=== PATIENT | male | born 1970 | race Caucasian/White ===

== ENCOUNTER 2020-02-11 21:08 | Emergency (ER) | payer SELFPAY ==
[~2020-02-11] VITALS: Ht 185.4 cm; Wt 158.7 kg
[2020-02-11 21:23] LABS: EOS # 0.3 (0.04-0.40); EOS % 3.6 % (0.0-4.0); HEMATOCRIT 42.7 % (42.0-52.0); HEMOGLOBIN 14.5 g/dL (13.5-18.0); LYMPH# 2.5 (1.50-4.00); MEAN CELL VOLUME 89 fl (78-100); MEAN CORPUSCULAR HEMOGLOBIN 30 pg (27-31); MEAN CORPUSCULAR HGB CONC 34 g/dL (33-37); MEAN PLATELET VOLUME 9.7 fl (7.4-10.4); MONO # 0.6 (0.20-0.80); NEU # 3.7 (1.40-6.50); PLATELET COUNT 317 K/mm3 (130-400); RED BLOOD COUNT 4.79 M/mm3 (4.20-5.60); RED CELL DISTRIBUTION WIDTH 12.8 % (11.5-14.5); WHITE BLOOD COUNT 7.2 K/mm3 (4.8-10.8)
[2020-02-11 21:34] LABS: ALBUMIN 4.4 g/dL (3.5-5.0)
[2020-02-11 21:35] LABS: POTASSIUM 3.7 mmol/L (3.5-5.1)
[2020-02-11 21:36] LABS: CALCIUM 9.1 mg/dL (8.3-10.5)
[2020-02-11 21:37] LABS: TOTAL PROTEIN 8.2 g/dL (6.4-8.3)
[2020-02-11 21:39] LABS: TOTAL BILIRUBIN 0.2 mg/dL (0.2-1.2)
[2020-02-11 21:59] LABS: URINE APPEARANCE CLOUDY; URINE BILIRUBIN NEGATIVE (NEGATIVE); URINE BLOOD 250 ery/uL (NEGATIVE); URINE COLOR BLOODY; URINE GLUCOSE NEGATIVE (NEGATIVE); URINE KETONE NEGATIVE (NEGATIVE); URINE NITRATE NEGATIVE (NEGATIVE); URINE PROTEIN(semi-quant) 1+ mg/dL (NEGATIVE); URINE UROBILINOGEN NORMAL (NORMAL)
[2020-02-11 22:01] LABS: URINE MUCUS PRESENT (NOT PRESENT)
[2020-02-11 23:56] VITALS: BP 154/111
[2020-02-12] MEDS ORDERED: CEPHALEXIN500 M1 PO (00:42)
[2020-02-12] MEDS ORDERED: PERCOCET 325 MG1 TA5 PO (00:44)
== END 2020-02-12 01:16 | disposition home or self-care (01) ==
LOC: ED 21:08
PROVIDERS: Nurse Practitioner
DX: N21.0 Calculus in bladder (principal); N13.30 Unspecified hydronephrosis; Z88.2 Allergy status to sulfonamides; Z87.442 Personal history of urinary calculi
CPT/HCPCS: J0696; J1170; J1885; J2405; J7030